=== PATIENT | male | born 1950 | race Caucasian/White ===

== ENCOUNTER 2018-10-14 13:19 | Emergency (ER) | payer MEDICARE, BC ==
[~2018-10-14] VITALS: Ht 182.9 cm; Wt 90.9 kg
[~2018-10-14 13:19] MED LIST: BAYER CHEWABLE81 MG PO; EXFORGE PO; FISH OIL 500 MG1 CAP PO; LEVAQUIN PREMI750 MG PO; LEVAQUIN750 MG PO; LIPITOR40 MG PO; NORVASC5 MG PO
[2018-10-14 13:25] VITALS: Ht 182.9 cm; Wt 90.9 kg
[2018-10-14 14:50] VITALS: BP 148/71
== END 2018-10-14 14:57 | disposition home or self-care (01) ==
LOC: D.ER 13:19
DX: S51.852A Open bite of left forearm, initial encounter (principal); W54.0XXA Bitten by dog, initial encounter; Y93.89 Activity, other specified; Y92.830 Public park as the place of occurrence of the external cause